=== PATIENT | male | born 1965 | race Hispanic/Latino ===

== ENCOUNTER 2017-05-20 00:03 | Emergency (ER) | payer SELFPAY ==
[~2017-05-20] VITALS: Ht 162.6 cm; Wt 73.9 kg
[2017-05-20] MEDS ORDERED: CLINDAMYCIN PHOS 600 MG/ 4 ML VIAL IM ONE (01:00)
[2017-05-20] MEDS ORDERED: LIDOCAINE HCL 1% LOCAL INJ 20 ML VIAL INJ ONE (01:00)
[2017-05-20] MEDS ORDERED: CLINDAMYCIN PHOS 300MG/2ML VIAL ONE (01:40)
--- NOTE | 2017-05-20 01:52 | Diagnostic Imaging Report ---
EXAM: FINGER RIGHT, AP, lateral and oblique, third digit of the right hand DATE: 05/20/2017 12:50 AM Time stamp on exam: 2208 hours INDICATION: Hang nail, new swelling COMPARISON: None FINDINGS: BONES: No acute fractures. JOINTS: No malalignment. SOFT TISSUES: Soft tissue swelling of the distal third digit. No radiopaque foreign body. IMPRESSION: No radiopaque foreign body or underlying erosion. Signed by: Dr. Miguelina Santos M.D. on 05/20/2017 1:48 AM
[2017-05-20 02:40] VITALS: BP 151/74
[2017-05-20] MEDS ORDERED: BACITRACIN ZINC 0.9GM TP ONE (02:45)
== END 2017-05-20 02:53 | disposition home or self-care (01) ==
LOC: ER 00:03
DX: M79.644 Pain in right finger(s) (principal); L03.011 Cellulitis of right finger
CPT/HCPCS: 96372; 99283